=== PATIENT | female | born 1965 | race Two or more races ===

== ENCOUNTER 2018-04-27 03:44 | Emergency (ER) | payer OTHER ==
[~2018-04-27] VITALS: Ht 165.1 cm; Wt 72.6 kg
[2018-04-27] MEDS ORDERED: ETOMIDATE 2 MG/ML VIAL IV ONE ×2 (03:47→05:30)
[2018-04-27] MEDS ORDERED: ROCURONIUM BROMIDE 50 MG/5 ML IV ONE ×2 (03:47→05:30)
--- NOTE | 2018-04-27 04:05 | NUR ---
PT [id number] FROM HOME. PER RA, PT WAS FOUND BY FAMILY MEMBER +ETOH WITH 2 EMPTY PILL BOTTLES, FLEXERIL 5MG AND AMITRIPTYLINE 10MG. PT ABLE TO OPEN EYES TO PAINFUL STIMULI. NONVERBAL. NO ACUTE DISTRESS NOTED AT THIS TIME. PT PLACED ON CONTINUOUS BILINGUAL SPANISH INBOUND SALES, WILL CONTINUE TO MONITOR. WAITING MD EVALUATION.
[2018-04-27] MEDS ORDERED: AMMONIA NASAL INHALATION 1 EA PACK NAS ONE (04:12)
--- NOTE | 2018-04-27 04:12 | NUR ---
PT UNRESPONSIVE WITH MD AT BEDSIDE. UNSUCCESSFUL ATTEMPT TO WAKE PT WITH AMMONIA. RT AT BEDSIDE WITH DR. MCGEE FOR INTUBATION.
--- NOTE | 2018-04-27 04:12 | NUR ---
MD AT BEDSIDE FOR EVALUATION
[2018-04-27 04:14] LABS: BASOPHILS % (AUTO) 0.6 % (0.0-2.0); EOSINOPHILS % (AUTO) 1.1 % (0.0-6.0); HEMATOCRIT 39 % (33-45); LYMPHOCYTES # (AUTO) 2.3 /CMM (0.8-4.8); LYMPHOCYTES % (AUTO) 37.6 % (20.0-44.0); MEAN CORPUSCULAR HGB CONC 34 g/dl (31.0-36.0); MEAN CORPUSCULAR VOLUME 88 fL (82-100); MONOCYTES # (AUTO) 0.3 /CMM (0.1-1.30); MONOCYTES % (AUTO) 5.5 % (2.0-12.0); NEUTROPHILS # (AUTO) 3.4 /CMM (1.8-8.9); NEUTROPHILS % (AUTO) 55.2 % (43.0-81.0); PLATELET COUNT (AUTO) 171 /CMM (150-450); RED BLOOD CELL COUNT(AUTO) 4.43 MIL/uL (4.0-5.2); WHITE BLOOD COUNT (AUTO) 6.2 K/uL (4.3-11.0)
[2018-04-27 04:26] LABS: CALCIUM, SERUM 9.3 mg/dL (8.5-10.1); CREATININE 0.5 mg/dL (0.6-1.3); POTASSIUM 3.1 mmol/L (3.5-5.1)
[2018-04-27] MEDS ORDERED: PROPOFOL 100 ML ONE ×2 (04:30→08:59)
--- NOTE | 2018-04-27 04:30 | NUR ---
RT AT BEDSIDE. VENT SETTINGS: RATE 22, PEAK 60, TIDAL VOLUME 450, PEEP 5, O2 100%. 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
[2018-04-27 04:32] LABS: ALBUMIN 4.1 g/dL (3.4-5.0); BILIRUBIN,DIRECT 0.1 mg/dL (0.0-0.2); BILIRUBIN,TOTAL 0.2 mg/dL (0.2-1.0); SALICYLATE 0.8 mg/dL (2.8-20.0); TOTAL PROTEIN, SERUM 7.6 g/dL (6.4-8.2)
[2018-04-27 04:35] VITALS: BP 156/115
[2018-04-27] MEDS: PROPOFOL 100 ML IV PRN ×2 (04:40→09:02)
--- NOTE | 2018-04-27 04:44 | NUR ---
16FR robles catheter inserted per sterile protocal. Immediate output 500ML of urine, color pale, clarity clear. Urine specimen obtained and sent to the lab.
--- NOTE | 2018-04-27 04:44 | NUR ---
RT PT INTUBATED WITH EET 7.5 AND 21 AT THE LIP. PT PLACED ON [facility] VENT ON SETTINGS AC 22, VT450, SPO2 100%, PEEP +5. NO SIGNS OF RESP DISTRESS AT THIS MOMENT. PT WITH EQUAL CHEST RISE. ALARMS AUDIBLE. AMBUBAG AT BEDSIDE. VENT CONNECTED TO RED OUTLET. WILL CONT TO MONITOR. Addendum: 04/27/18 at 0448 by CONSUELO GASPAR RT Amended: Links added.
[2018-04-27] MEDS ORDERED: IV NS 0.9% 1,000 ML BAG IV ONE (05:00)
[2018-04-27] MEDS ORDERED: IV D5/0.45 NACL 1,000 ML IV PRN (05:07)
[2018-04-27] MEDS ORDERED: POTASSIUM CL. PREMIX PERIPHER. 50 ML ONE ×3 (05:08→07:12)
[2018-04-27] MEDS: POTASSIUM CL. PREMIX PERIPHER. 50 ML IV SCH ×2 (05:20→06:00)
[2018-04-27] MEDS ORDERED: TRAM50TA2 PO (05:21)
[2018-04-27] MEDS ORDERED: ASPI-1152 PO (05:21)
[2018-04-27 05:25] LABS: APPEARANCE,URINE CLEAR (CLEAR); BILIRUBIN,URINE NEGATIVE (NEGATIVE); BLOOD, URINE NEGATIVE Ery/uL (NEGATIVE); KETONES,URINE NEGATIVE (NEGATIVE); LEUKOCYTE ESTERASE ,URINE NEGATIVE (NEGATIVE); NITRITE, URINE NEGATIVE (NEGATIVE); PROTEIN,URINE NEGATIVE (NEGATIVE); UGLUCOSE NEGATIVE (NEGATIVE); UROBILINOGEN,URINE 0.2 EU/dL (0.2)
[2018-04-27] MEDS ORDERED: Z GUARD REMEDY 2 OZ OINT TP PRN (05:30)
[2018-04-27] MEDS ORDERED: LORAZEPAM INJ 2 MG/ML VIAL IV PRN (05:30)
[2018-04-27] MEDS ORDERED: ACETAMINOPHEN 325 MG TABLET PO PRN (05:30)
[2018-04-27] MEDS ORDERED: PROPOFOL 100 ML IV PRN ×2 (05:30→09:00)
[2018-04-27] MEDS ORDERED: ONDANSETRON HCL/PF 4 MG/2 ML VIAL IVP PRN (05:30)
[2018-04-27] MEDS ORDERED: CEFTRIAXONE 1 G in IV D5W 50 ML IV SCH (05:30)
[2018-04-27] MEDS ORDERED: MAGNESIUM HYDROXIDE 30 ML UDC PO PRN (05:30)
[2018-04-27] MEDS ORDERED: Thiamine 100 MG in IV D5W 50 ML IV SCH (05:30)
[2018-04-27] MEDS ORDERED: METRONIDAZOLE 500MG/ NS 100ML 500 MG in PREMIX 1 EA IV SCH (05:30)
[2018-04-27] MEDS ORDERED: MAG HYDROX/AL HYDROX/SIMETH 30 ML UDC PO PRN (05:30)
[2018-04-27 05:34] LABS: COLOR,URINE STRAW (YELLOW)
--- NOTE | 2018-04-27 05:40 | NUR ---
SPOKE WITH TONNY JIMENEZ FROM [facility]
--- NOTE | 2018-04-27 05:42 | NUR ---
RT AT BEDSIDE FOR ABG
--- NOTE | 2018-04-27 05:45 | NUR ---
RT AT BEDSIDE. VENT SETTINGS: RATE 15, PEAK 60, TIDAL VOLUME 450, PEEP 5, O2 50%
[2018-04-27 05:48] LABS: ABG BASE EXCESS 1.9 mmol/L; ABG OXYGEN SATURATION 99.1 % (92.0-98.5); ABG PCO2 28.8 mmHg (35.0-45.0); ABG PH 7.532 (7.350-7.450); ABG PO2 483.4 mmHg (75.0-100.0); AaDO2 200.8 mmHg; COHb 0.3 % (0.5-1.5); MetHb 0.6 % (0.0-1.5); O2Hb 98.2 % (94.0-97.0); PEEP,BG 5 cm H2O; SITE, ABG Right Radial; VT, ABG 450 mL
--- NOTE | 2018-04-27 06:23 | NUR ---
[facility] [phone]
--- NOTE | 2018-04-27 06:48 | NUR ---
PT ACCEPTED TO [facility] ICU BY DR MICHELE. ICU BED 1123. # FOR REPORT [phone]. [facility] ETA [phone]
--- NOTE | 2018-04-27 07:00 | NUR ---
GAVE REPORT TO LEONEL JIMENEZ FROM [facility]
--- NOTE | 2018-04-27 07:11 | NUR ---
GAVE REPORT TO GABE JIMENEZ [facility]
--- NOTE | 2018-04-27 07:20 | NUR ---
[facility] REPORT FOR [facility], PATIENT REMAINS STABLE IN NO DISTRESS, VENT SETTING ORDERED. VS REMAIN STABLE.
[2018-04-27] MEDS ORDERED: CEFTRIAXONE 1GM BAG (ER ONLY) 50 ML IV ONE (07:29)
[2018-04-27 07:35] VITALS: BP 118/79
--- NOTE | 2018-04-27 07:40 | NUR ---
PT. RECEIVED ORALLY INTUBATED WITH 7.5 ETT SECURED @ 22CM [id number] WITH PARAMETERS BELOW: AC 15 VT 450 FIO2 50% PEEP +5 BREATH SOUNDS CLEAR BILATERAL. ROMERO @ BEDSIDE. Addendum: 04/27/18 at 0742 by KASSIE CLOUD RT Amended: Links added.
--- NOTE | 2018-04-27 08:45 | NUR ---
REPORT GIVEN TO TRANSPORT AND [facility] STAFF
[2018-04-27] MEDS ORDERED: VIT B CMPLX 3/FA/VIT C/BIOTIN 1 TAB TABLET PO SCH (09:00)
[2018-04-27] MEDS ORDERED: PANTOPRAZOLE 40 MG VIAL IV SCH (09:00)
--- NOTE | 2018-04-27 09:31 | NUR ---
PATIENT WILL BE TRANSFERRED TO [place], PATIENT REMAINS STABLE, VSS ARE STABLE
[2018-04-27 09:39] VITALS: BP 101/70
== END 2018-04-27 09:42 | disposition short-term general hospital (02) ==
LOC: ER 03:46 → EDBD 03:46 → ER 09:42
DX: J96.00 Acute respiratory failure, unspecified whether with hypoxia or hypercapnia (principal); R45.851 Suicidal ideations; E87.6 Hypokalemia; F10.129 Alcohol abuse with intoxication, unspecified; R94.31 Abnormal electrocardiogram [ECG] [EKG]; Y90.6 Blood alcohol level of 120-199 mg/100 ml; Z79.82 Long term (current) use of aspirin
CPT/HCPCS: 31500; 36415; 36600 ×2; 51702; 71045; 80048; 80076; 80305; 80329; 81001; 82803; 82962; 84702; 85025; 87070; 87081; 93005 ×3; 94640; 96365; 96367; 96374; 96375; 99291; A4606; G0480 ×2; J0696; J3480; J3490 ×3; J7030; Z7610; 81000-TC; A4216; J3411; J7060